=== PATIENT | male | born 1960 | race Caucasian/White ===

== ENCOUNTER → 2017-02-18 | Outpatient (CLI) | payer OTHER ==
[~2017-02-18] VITALS: Ht 175.3 cm; Wt 113.6 kg
[~2017-02-18] MED LIST: ASPIR LOW81 MG PO; DHA PO; LISINOPRIL20 MG PO; METOPROLOL SUC100 M1 PO; MULTI-VITAMIN1 EACH PO; NIACIN500 M5 PO; SIMVASTATIN20 M1 PO
[2017-02-18 12:14] VITALS: BP 186/120
== END ==
LOC: AMSURD 11:44
DX: I10 Essential (primary) hypertension (principal); E78.5 Hyperlipidemia, unspecified

== ENCOUNTER → 2017-02-19 | Outpatient (CLI) | payer OTHER ==
[2017-02-18 12:14] VITALS: BP 186/120
== END ==
LOC: RAD 13:00 → VAS 16:51
DX: I10 Essential (primary) hypertension (principal); E78.5 Hyperlipidemia, unspecified

== ENCOUNTER → 2018-05-18 | Outpatient (CLI) | payer OTHER ==
[2017-02-18 12:14] VITALS: BP 186/120
[2018-05-18 08:25] LABS: ALBUMIN 4.2 g/dL (3.5-5.0); BUN/CREATININE RATIO 16.5 (6.0-26.0); CALCIUM 9.6 mg/dL (8.4-10.2); POTASSIUM 5.4 mmol/L (3.6-5.0); TOTAL PROTEIN 7.6 g/dL (6.3-8.2)
== END ==
LOC: LAB 07:56
PROVIDERS: Family Medicine
DX: Z12.5 Encounter for screening for malignant neoplasm of prostate (principal); E78.5 Hyperlipidemia, unspecified; E87.5 Hyperkalemia; I10 Essential (primary) hypertension; Z80.42 Family history of malignant neoplasm of prostate